=== PATIENT | male | born 1990 | race Caucasian/White ===

== ENCOUNTER 2019-12-20 04:44 | Emergency (ER) | payer SELFPAY ==
[~2019-12-20] VITALS: Ht 175.3 cm; Wt 77.2 kg
[2019-12-20] MEDS ORDERED: fentaNYL PF VIAL 100 MCG/2 ML VIAL IVP ONE ×2 (05:00)
[2019-12-20] MEDS ORDERED: ONDANSETRON PF 4 MG/2 ML VIAL. IVP ONE ×2 (05:00)
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
[2019-12-20] MEDS ORDERED: FAMOTIDINE 20 MG/2 ML VIAL IVP ONE (05:15)
[2019-12-20] MEDS ORDERED: IV NORMAL SALINE 1000ML BAG 1,000 ML IV ONE (05:15)
[2019-12-20] MEDS ORDERED: DIPH,PERTUSS(ACELL),TET VAC/PF 0.5 ML SYRINGE. VAX IM ONE (06:15)
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
[2019-12-20 07:08] LABS: BASO % 0 % (0-3); EOS % 0 % (0-3); HEMATOCRIT 44.6 % (39.0-53.0); HEMOGLOBIN 15.2 g/dL (13.0-17.5); LYMPH # 1.3 x10^3/uL (1.0-4.8); LYMPH % 11 % (24-48); MEAN CORPUSCULAR HEMOGLOBIN 30 pg (25-35); MEAN CORPUSCULAR HGB CONC 34 g/dL (31-37); MEAN CORPUSCULAR VOLUME 89 fL (79-100); MONO # 0.9 x10^3/uL (0.0-1.1); MONO % 8 % (0-9); NEUT # 10.1 x10^3/uL (1.8-7.7); NEUT % 82 % (31-73); PLATELET COUNT 204 x10^3/uL (140-400); RED BLOOD COUNT 5.04 x10^6/uL (4.30-5.70); RED CELL DISTRIBUTION WIDTH 13.7 % (11.5-14.5); WHITE BLOOD COUNT 12.3 x10^3/uL (4.0-11.0)
[2019-12-20] MEDS ORDERED: MORPHINE SULFATE 4 MG/ML VIAL. IV ONE (07:15)
[2019-12-20 07:17] LABS: CREATININE 0.7 mg/dL (0.7-1.3); GFR 132.4; POTASSIUM 3.6 mmol/L (3.5-5.1)
[2019-12-20 07:21] LABS: BARBITURATES NEG (NEG); BENZODIAZEPINES NEG (NEG); CANNABINOIDS NEG (NEG); COCAINE NEG (NEG); METHADONE NEG (NEG); OPIATES NEG (NEG); PHENCYCLIDINE NEG (NEG)
[2019-12-20 07:22] LABS: ALBUMIN 3.8 g/dL (3.4-5.0); ALBUMIN/GLOBULIN RATIO 1.2 (1.0-1.7); TOTAL BILIRUBIN 0.5 mg/dL (0.2-1.0); TOTAL PROTEIN 6.9 g/dL (6.4-8.2)
[2019-12-20 07:25] LABS: AMPHETAMINE/METHAMPHETAMINE POS (NEG)
[2019-12-20 07:31] LABS: PROTHROMBIN TIME PATIENT 13.6 SEC (11.7-14.0)
[2019-12-20 11:30] VITALS: BP 130/86
== END 2019-12-20 11:55 | disposition short-term general hospital (02) ==
LOC: EEVIPCON 04:44 → ER 04:44
DX: S02.411A LeFort I fracture, initial encounter for closed fracture (principal); S00.83XA Contusion of other part of head, initial encounter; M25.512 Pain in left shoulder; R51 Headache; R55 Syncope and collapse; F10.229 Alcohol dependence with intoxication, unspecified; Z88.1 Allergy status to other antibiotic agents; Z88.8 Allergy status to other drugs, medicaments and biological substances; Z79.899 Other long term (current) drug therapy; W22.8XXA Striking against or struck by other objects, initial encounter; Y93.89 Activity, other specified; Y92.89 Other specified places as the place of occurrence of the external cause; Y99.8 Other external cause status
CPT/HCPCS: 36415; 70450; 70486; 71045; 72125; 73030; 80053; 80307; 85025; 85610; 85730; 90471; 90715; 96374; 96375; 96376; 99285; G0480; J2270; J2405; J3010; J3490